=== PATIENT | female | born 1975 | race Caucasian/White ===

== ENCOUNTER 2017-10-09 20:39 | Emergency (ER) | payer SELFPAY ==
[~2017-10-09] VITALS: Ht 149.9 cm; Wt 54.9 kg
[2017-10-09 20:44] VITALS: BP 127/82
--- NOTE | 2017-10-09 20:45 | NUR ---
PT BIB [facility] AND IN A CHAIR IN BED 10.
--- NOTE | 2017-10-09 21:27 | NUR ---
Patient being evaluated by Dr. Oleary at bedside.
[2017-10-09 21:45] VITALS: BP 117/72
--- NOTE | 2017-10-09 21:45 | NUR ---
Patient discharged with v/s stable. Written and verbal after care instructions given and explained. Patient verbalized understanding. Police with in custody. All questions addressed prior to discharge. Advised to follow up with [facility].
== END 2017-10-09 21:45 ==
LOC: MED 20:39
DX: Z02.89 Encounter for other administrative examinations (principal); F41.9 Anxiety disorder, unspecified; V43.52XA Car driver injured in collision with other type car in traffic accident, initial encounter; Y93.89 Activity, other specified; Y92.488 Other paved roadways as the place of occurrence of the external cause; Y99.8 Other external cause status
CPT/HCPCS: 99283